=== PATIENT | male | born 1960 | race Caucasian/White ===

== ENCOUNTER 2024-05-16 12:21 | Emergency (ER) | payer MEDICARE ==
[2024-05-16] MEDS: SODIUM CHLORIDE 0.9% 1,000 ML IV STA (13:11)
[2024-05-16 13:19] LABS: Basophils % (A) 0 %; Eosinophils # (A) 0.1 k/uL (0-0.7); Eosinophils % (A) 1 %; HCT 36.3 % (39.0-53.0); HGB 11.4 gm/dL (13.0-17.5); Hypochromasia Moderate; Lymphocytes # (A) 1.6 k/uL (1.0-4.8); Lymphocytes % (A) 12 %; MCH 28.1 pg (25.0-35.0); MCHC 31.4 g/dL (31.0-37.0); MCV 89.3 fL (80.0-100.0); Monocytes # (A) 0.9 k/uL (0-1.0); Monocytes % (A) 6 %; Neutrophils # (A) 11.1 k/uL (1.3-7.7); Neutrophils % (A) 80 %; Platelet Count 463 k/uL (150-450); RBC 4.06 m/uL (4.30-5.90); RDW 14.3 % (11.5-15.5); WBC 13.8 k/uL (3.8-10.6)
[2024-05-16 13:41] LABS: ALT 13 U/L (4-49); AST 19 U/L (17-59); African American GFR (CKD) >90 (>60 ml/min/1.73 sqM); Albumin 4.3 g/dL (3.5-5.0); Alkaline Phosphatase 55 U/L (38-126); Anion Gap 7 mmol/L; Blood Urea Nitrogen 15 mg/dL (9-20); Calcium 9.1 mg/dL (8.4-10.2); Carbon Dioxide 24 mmol/L (22-30); Chloride 108 mmol/L (98-107); Glucose 103 mg/dL (74-99); Lipase 50 U/L (23-300); Non-African American GFR(CKD) >90 (>60 ml/min/1.73 sqM); Sodium 139 mmol/L (137-145); Total Bilirubin 0.4 mg/dL (0.2-1.3); Total Protein 7.2 g/dL (6.3-8.2)
--- NOTE | 2024-05-16 13:59 | CT ---
EXAMINATION TYPE: CT abdomen pelvis wo con CT DLP: 461.3 mGycm, Automated exposure control for dose reduction was used. DATE OF EXAM: 05/16/2024 1:42 PM COMPARISON: None CLINICAL INDICATION:Male, 63 years old with history of Hematuria, pelvic pain; Hematuria, pelvic pain TECHNIQUE: Standard CT of the abdomen and pelvis without IV or oral contrast. Lack of IV or oral co ntrast limits evaluation of solid and hollow organ viscera. Coronal and sagittal reformats were perfo rmed. FINDINGS: LOWER CHEST: Unremarkable ABDOMEN LIVER: Couple of subcentimeter hypodense foci within the liver which are too small to characterize bu t likely represent cysts. Hepatomegaly measuring 19.0 cm in CC dimension. GALLBLADDER AND BILE DUCTS: Contracted gallbladder. No biliary duct dilatation. PANCREAS: Unremarkable noncontrast appearance. SPLEEN: Unremarkable noncontrast appearance. ADRENAL GLANDS: Unremarkable noncontrast appearance.. KIDNEYS AND URETERS: No evidence of hydronephrosis or renal calculus. No definitive ureteral calculus . PELVIS BLADDER: Regions of wall thickening measuring up to 7 mm on the left lateral wall and on the right me asuring up to 8 mm. Perivesicular fat stranding. REPRODUCTIVE: Prostate is enlarged in size measuring 5.0 cm in transverse dimension. ABDOMEN & PELVIS STOMACH AND BOWEL: Stomach and duodenum are unremarkable. No focal bowel wall thickening or surroundi ng inflammatory changes. No evidence of bowel obstruction. PERITONEUM: No evidence of pneumoperitoneum or free fluid. VASCULATURE: Moderate atherosclerotic calcifications are present throughout the abdominal aorta and i ts branches. No evidence of aortic aneurysm. Ectasia of the infrarenal abdominal aorta measuring up t o 2.7 cm. MUSCULOSKELETAL: No acute osseous abnormalities. Grade 1 anterolisthesis of L5 on S1 with bilateral p ars defects. LYMPH NODES: No gross evidence for lymphadenopathy. SOFT TISSUE/ABDOMINAL WALL: Tiny fat filled umbilical hernia. IMPRESSION: 1. Focal regions of urinary bladder wall thickening with perivesicular fat stranding concerning for cystitis versus chronic outlet obstruction from prostatomegaly. Underlying neoplasm is not excluded. Correlate with urinalysis. 2. No evidence for obstructive uropathy or renal/ureteral calculus. 3. Ectasia of the abdominal aorta measured 2.7 cm. 4. Grade 1 anterolisthesis of L5 on S1 with bilateral pars defects. 5. Mild hepatomegaly. [facility], , 05/16/2024 1:57 PM
--- NOTE | 2024-05-16 14:07 | ED ---
General Adult HPI - General Chief complaint: Urogenital Stated complaint: Blood in Urine Time Seen by Provider: 05/16/24 12:31 Source: patient, RN notes reviewed Mode of arrival: ambulatory Limitations: no limitations - History of Present Illness Initial comments: 63-year-old male presents emergency department with chief complaint of hematuria. Patient states he started having hematuria last 24 hours. Patient states that he felt a large amount of pressure in his lower abdomen and bladder region states that he did have a large output of blood in urine. Patient states that he has known enlarged prostate in which she does take medication for when h e has symptoms. Patient denies any flank pain no chest pain no shortness of breath no night sweats no weight loss. Patient states he has not had his prostate checked recently. He does complain of pain within his pelvic region - Related Data Home Medications Medication Instructions Recorded Confirmed ALPRAZolam [Xanax] 0.5 mg PO BID 11/02/13 11/08/13 HYDROcodone/APAP 7.5-325MG [[place] 1 tab PO Q6HR 11/02/13 11/08/13 7.5-325] Lisinopril-Hctz 20-25 mg 20 mg PO DAILY 11/02/13 11/08/13 [Zestoretic 20-25] Metoprolol Succinate [Toprol XL] 50 mg PO DAILY 11/02/13 11/08/13 Terazosin [Hytrin] 5 mg PO HS 11/02/13 11/08/13 amLODIPine [Norvasc] 10 mg PO DAILY 11/02/13 11/08/13 Previous Rx's Medication Instructions Recorded Ciprofloxacin HCl [Cipro] 500 mg PO Q12HR #20 tablet 05/16/24 Allergies Allergy/AdvReac Type Severity Reaction Status Date / Time No Known Allergies Allergy Verified 05/16/24 12:29 Review of Systems ROS Statement: Those systems with pertinent positive or pertinent negative responses have been documented in the HPI. ROS Other: All systems not noted in ROS Statement are negative. Past Medical History Past Medical History: Hypertension History of Any Multi-Drug Resistant Organisms: None Reported Additional Past Surgical History / Comment(s): Broken back due to injury 2 years ago but problems started 2 weeks later with pain. Lower back radiating down bilateral legs, burning and stabbing intermittently. 5/6 pain scale. Surgery on Left arm tendon reconsruction done 1993 Past Anesthesia/Blood Transfusion Reactions: No Reported Reaction Past Psychological History: Anxiety Past Alcohol Use History: None Reported - Past Family History Father Family Medical History: Cancer Mother Family Medical History: Cancer General Exam Limitations: no limitations General appearance: alert, in no apparent distress Head exam: Present: atraumatic, normocephalic, normal inspection ENT exam: Present: normal exam, mucous membranes moist Neck exam: Present: normal inspection, full ROM. Absent: tenderness, meningismus, lymphadenopathy Respiratory exam: Present: normal lung sounds bilaterally. Absent: respiratory distress, wheezes, rales, rhonchi, stridor Cardiovascular Exam: Present: regular rate, normal rhythm, normal heart sounds. Absent: systolic murmur, diastolic murmur, rubs, gallop, clicks GI/Abdominal exam: Present: soft, tenderness (Suprapubic), normal bowel sounds. Absent: distended, guarding, rebound, rigid Course Vital Signs 05/16/24 05/16/24 12:24 14:20 Temperature 98 F 98.1 F Pulse Rate 101 H 78 Respiratory 16 18 Rate Blood Pressure 163/79 124/76 O2 Sat by Pulse 100 98 Oximetry Medical Decision Making - Medical Decision Making Was pt. sent in by a medical professional or institution (, PA, BRAZING MACHINE FEEDER, urgent care, hospital, or longterm...) When possible be specific @ -No Did you speak to anyone other than the patient for history (EMS, parent, family, police, friend...)? What history was obtained from this source @ -No Did you review nursing and triage notes (agree or disagree)? Why? @ -I reviewed and agree with nursing and triage notes Were old charts reviewed (outside hosp., previous admission, EMS record, old EKG, old radiological studies, urgent care reports/EKG's, longterm records)? Report findings @ -No old charts were reviewed Differential Diagnosis (chest pain, altered mental status, abdominal pain women, abdominal pain men, vaginal bleeding, weakness, fever, dyspnea, syncope, headache, dizziness, GI bleed, back pain, seizure, CVA, palpatations, mental health, musculoskeletal)? @ -Hematuria, kidney stone, UTI, bladder mass, kidney mass EKG interpreted by me (3pts min.). @ -None X-rays interpreted by me (1pt min.). @ -None done CT interpreted by me (1pt min.). @ -CT abdomen pelvis showing degenerative changes lumbar spine, dilated aorta, inflammatory changes bladder consistent with cystitis, chronic obstructive process or underlying neoplasm U/S interpreted by me (1pt. min.). @ -None done What testing was considered but not performed or refused? (CT, X-rays, U/S, labs)? Why? @ -None What meds were considered but not given or refused? Why? @ -None Did you discuss the management of the patient with other professionals (professionals i.e. DrEmma, PA, BRAZING MACHINE FEEDER, lab, RT, psych nurse, director social, river and lakes boatman, teacher, surface to air weapons officer, director case management)? Give summary @ -No Was smoking cessation discussed for >3mins.? @ -No Was critical care preformed (if so, how long)? @ -No Were there social determinants of health that impacted care today? How? (Homelessness, low income, unemployed, alcoholism, drug addiction, transportation, low edu. Level, literacy, decrease access to med. care, correction, rehab)? @ -No Was there de-escalation of care discussed even if they declined (Discuss DNR or withdrawal of care, Hospice)? DNR status @ -No What co-morbidities impacted this encounter? (DM, HTN, Smoking, COPD, CAD, Cancer, CVA, ARF, Chemo, Hep., AIDS, mental health diagnosis, sleep apnea, morbid obesity)? @ -None Was patient admitted / discharged? Hospital course, mention meds given and route, prescriptions, significant lab abnormalities, going to OR and other pertinent info. @ -Discharge patient updated on laboratory results, urinalysis. Patient does have evidence of UTI patient was given Rocephin CT results were provided in which patient states he knows about his aortic changes he is updated on his bladder wall concerns for neoplasm requiring him to follow-up with urology and have a cystoscopy. Patient be treated for UTI at this time return parameters are discussed. Undiagnosed new problem with uncertain prognosis? @ -No Drug Therapy requiring intensive monitoring for toxicity (Heparin, Nitro, Insulin, Cardizem)? @ -No Were any procedures done? @ -No Diagnosis/symptom? @ -UTI, hematuria Acute, or Chronic, or Acute on Chronic? @ -Acute Uncomplicated (without systemic symptoms) or Complicated (systemic symptoms)? @ -Uncomplicated Side effects of treatment? @ -No Exacerbation, Progression, or Severe Exacerbation? @ -No Poses a threat to life or bodily function? How? (Chest pain, [place], [place], pneumonia, PE, COPD, DKA, ARF, appy, cholecystitis, CVA, Diverticulitis, Homicidal, Suicidal, threat to staff... and all critical care pts) @ -No - Lab Data Result diagrams: 05/16/24 13:03 05/16/24 13:03 Lab Results 05/16/24 05/16/24 05/16/24 Range/Units 13:03 13:03 13:03 WBC 13.8 H (3.8-10.6) k/uL RBC 4.06 L (4.30-5.90) m/uL Hgb 11.4 L (13.0-17.5) gm/dL Hct 36.3 L (39.0-53.0) % MCV 89.3 (80.0-100.0) fL MCH 28.1 (25.0-35.0) pg MCHC 31.4 (31.0-37.0) g/dL RDW 14.3 (11.5-15.5) % Plt Count 463 H (150-450) k/uL MPV 7.0 Neutrophils % 80 % Lymphocytes % 12 % Monocytes % 6 % Eosinophils % 1 % Basophils % 0 % Neutrophils # 11.1 H (1.3-7.7) k/uL Lymphocytes # 1.6 (1.0-4.8) k/uL Monocytes # 0.9 (0-1.0) k/uL Eosinophils # 0.1 (0-0.7) k/uL Basophils # 0.0 (0-0.2) k/uL Hypochromasia Moderate Sodium 139 (137-145) mmol/L Potassium 4.0 (3.5-5.1) mmol/L Chloride 108 H (98-107) mmol/L Carbon Dioxide 24 (22-30) mmol/L Anion Gap 7 mmol/L BUN 15 (9-20) mg/dL Creatinine 0.54 L (0.66-1.25) mg/dL Est GFR (CKD-EPI)AfAm >90 (>60 ml/min/1.73 sqM) Est GFR (CKD-EPI)NonAf >90 (>60 ml/min/1.73 sqM) Glucose 103 H (74-99) mg/dL Calcium 9.1 (8.4-10.2) mg/dL Total Bilirubin 0.4 (0.2-1.3) mg/dL AST 19 (17-59) U/L ALT 13 (4-49) U/L Alkaline Phosphatase 55 (38-126) U/L Total Protein 7.2 (6.3-8.2) g/dL Albumin 4.3 (3.5-5.0) g/dL Lipase 50 (23-300) U/L Urine Color Red Urine Appearance Cloudy (Clear) Urine pH 6.5 (5.0-8.0) Ur Specific [place] 1.019 (1.001-1.035) Urine Protein 2+ H (Negative) Urine Glucose (UA) Negative (Negative) Urine Ketones Negative (Negative) Urine Blood Large H (Negative) Urine Nitrite Negative (Negative) Urine Bilirubin Negative (Negative) Urine Urobilinogen <2.0 (<2.0) mg/dL Ur Leukocyte Esterase Moderate H (Negative) Urine RBC >182 H (0-5) /hpf Urine WBC >182 H (0-5) /hpf Urine Mucus Rare H (None) /hpf Disposition Clinical Impression: UTI (urinary tract infection), Hematuria Disposition: HOME SELF-CARE Instructions (If sedation given, give patient instructions): Urinary Tract Infection in Men (ED) Additional Instructions: Please return to the Emergency Department if symptoms worsen or any other concerns. Prescriptions: Ciprofloxacin HCl [Cipro] 500 mg PO Q12HR #20 tablet Is patient prescribed a controlled substance at d/c from ED?: No Referrals: Kait Costello DO [Primary Care Provider] - 1-2 days Melo Cooper MD [STAFF PHYSICIAN] - 1-2 days Time of Disposition: 14:47
[2024-05-16 14:22] VITALS: BP 124/76; PULSE 78; RESP 18; TEMP 98.1
[2024-05-16 14:34] LABS: Appearance,Urine Cloudy (Clear); Bilirubin,Urine Negative (Negative); Blood,Urine Large (Negative); Color,Urine Red; Glucose,Urine (UA) Negative (Negative); Ketones,Urine Negative (Negative); Leukocyte Esterase,Urine Moderate (Negative); Mucus,Urine Rare /hpf; Nitrite,Urine Negative (Negative); PH, Urine 6.5 (5.0-8.0); Protein,Urine 2+ (Negative); RBC,Urine >182 /hpf (0-5); Specific Gravity,Urine 1.019 (1.001-1.035); Urobilinogen,Urine <2.0 mg/dL (<2.0); WBC,Urine >182 /hpf (0-5)
[2024-05-16] MEDS: cefTRIAXone IN SWFI 1,000 MG/10 ML SYRINGE IVP STA (14:54)
== END 2024-05-16 15:03 | disposition home or self-care (01) ==
LOC: EC 12:21
DX: N39.0 Urinary tract infection, site not specified (principal); R31.9 Hematuria, unspecified; M47.896 Other spondylosis, lumbar region
CPT/HCPCS: 36415; 80053; 83690; 85025; 81001; 87086; 74176; 99284; 96374; 96361 ×2; J0696

== ENCOUNTER → 2024-05-31 | Outpatient (CLI) | payer MEDICARE ==
[2024-05-31 14:55] LABS: Basophils # (A) 0.07 X 10*3/uL (0.00-0.10); Basophils % (A) 0.5 %; Eosinophils % (A) 0.7 %; HCT 34.7 % (39.6-50.0); HGB 10.5 g/dL (13.0-17.0); Lymphocytes # (A) 1.76 X 10*3/uL (0.90-5.00); Lymphocytes % (A) 11.7 %; MCH 27.1 pg (27.0-32.0); MCHC 30.3 g/dL (32.0-37.0); MCV 89.4 FL (80.0-97.0); Mean Platelet Volume 9.4 FL (9.5-12.2); Monocytes # (A) 1.15 X 10*3/uL (0.20-1.00); Monocytes % (A) 7.6 %; NRBC Per 100 WBC 0 X 10*3/uL (0.00-0.01); Neutrophils # (A) 11.84 X 10*3/uL (1.80-7.70); Neutrophils % (A) 78.6 %; Platelet Count 301 X 10*3/uL (140-440); RBC 3.88 X 10*6/uL (4.40-5.60); RDW 14.7 % (11.5-14.5); WBC 15.05 X 10*3/uL (4.50-10.00)
[2024-05-31 15:12] LABS: Blood Urea Nitrogen 18.6 mg/dL (9.0-27.0); Calcium 9.2 mg/dL (8.7-10.3); Carbon Dioxide 26.9 mmol/L (21.6-31.8); Chloride 102 mmol/L (96-109); Glucose 132 mg/dL (70-110); Potassium 4.8 mmol/L (3.5-5.5); Sodium 139 mmol/L (135-145)
[2024-05-31 16:10] LABS: Bacteria,Urine 2+ (None Seen)
[2024-05-31 16:51] LABS: Appearance,Urine Cloudy (Clear); Bilirubin,Urine Negative (Negative); Blood,Urine Large (Negative); Color,Urine Dark Yellow (Yellow); Ketones,Urine Trace (Negative); Nitrite,Urine Negative (Negative); PH, Urine 6.5; Specific Gravity,Urine 1.033 (1.001-1.030)
== END | disposition home or self-care (01) ==
LOC: LABPAT 11:20
PROVIDERS: ATTEND Urology
DX: Z01.812 Encounter for preprocedural laboratory examination (principal); D49.4 Neoplasm of unspecified behavior of bladder
CPT/HCPCS: 80048; 81001; 85025; 87086

== ENCOUNTER 2024-06-07 11:19 | Day surgery (SDC) | payer MEDICARE ==
--- NOTE | 2024-06-07 07:38 | P.HPIHPCON ---
History of Present Illness H&P Date: 06/07/24 Chief Complaint: Bladder mass, gross hematuria This is a 63-year-old male with history of gross hematuria, underwent a CT abdomen and pelvis that showed no upper tract pathology, but did show a suspicious bladder mass. Underwent cystoscopy which confirmed the finding. Discussed with him given this finding I do recommend proceeding with a transurethral resection of bladder tumor, aware of the risk which includes but not limited to bleeding, infection, bladder perforation. He understood all the risk and agreed to proceed Consent for Procedure: I have explained the operation/procedure to the patient, including the risks, benefits, side effects, alternative therapies (including not receiving the proposed treatment or service), the likelihood of the patient achieving his/her goals, and potential recuperation problems for the procedure/sedation/analgesia, as well as any blood products, if indicated. I also explained to the patient the risks, benefits and side effects of the alternatives, as well as the risks related to not receiving the proposed procedure, care, treatment, or services. Past Medical History Past Medical History: Hypertension Additional Past Medical History / Comment(s): bladder tumor, History of Any Multi-Drug Resistant Organisms: None Reported Past Surgical History: Orthopedic Surgery Additional Past Surgical History / Comment(s): Broken back due to injury 2 years ago but problems started 2 weeks later with pain. Lower back radiating down bilateral legs, burning and stabbing intermittently. 5/6 pain scale. Surgery on Left arm tendon reconsruction done 1993, Past Anesthesia/Blood Transfusion Reactions: No Reported Reaction Additional Past Anesthesia/Blood Transfusion Reaction / Comment(s): no blood tx hx Smoking Status: Current every day smoker - Past Family History Father Family Medical History: Cancer Mother Family Medical History: Cancer Medications and Allergies Home Medications Medication Instructions Recorded Confirmed Type ALPRAZolam [Xanax] 0.5 mg PO TID 11/02/13 06/03/24 History Lisinopril-Hctz 20-25 mg 20 mg PO DAILY 11/02/13 06/03/24 History [Zestoretic 20-25] Metoprolol Succinate [Toprol XL] 50 mg PO DAILY 11/02/13 06/03/24 History Terazosin [Hytrin] 5 mg PO HS 11/02/13 06/03/24 History amLODIPine [Norvasc] 10 mg PO DAILY 11/02/13 06/03/24 History traMADol HCl [Ultram] 100 mg PO BID 06/03/24 06/03/24 History Allergies Allergy/AdvReac Type Severity Reaction Status Date / Time No Known Allergies Allergy Verified 06/03/24 09:59 Surgical - Exam - General no distress, no pain - Eyes normal ocular movement, no pale - ENT normal nares, normal mucosa - Respiratory normal expansion, normal respiratory effort - Abdomen Abdomen: soft, non tender Assessment and Plan Assessment: OR for TURBT
[~2024-06-07 11:19] MED LIST: MIDAZOLAM 2 MG/2 ML VIAL IV PRN
[2024-06-07] MEDS: IV FLUID CONTINUATION 1,000 ML IV ONE ×3 (11:59→15:49)
[2024-06-07] MEDS: LACTATED RINGERS 1,000 ML IV SCH (12:01)
[2024-06-07] MEDS: DEXAMETHASONE SOD PHOSPHATE 4 MG/ML 1 ML VIAL IV ONE (12:02)
[2024-06-07] MEDS: ONDANSETRON 4 MG/2 ML VIAL IVP ONE (12:02)
[2024-06-07] MEDS ORDERED: LIDOCAINE 1% INJ 10MG/ML (20 ML MDV) ONE (13:41)
[2024-06-07] MEDS ORDERED: PROPOFOL 10 MG/ML 20 ML VIAL IV ONE (13:41)
[2024-06-07] MEDS ORDERED: fentaNYL (PF) 50 MCG/ML 2 ML AMP ONE (13:41)
[2024-06-07] MEDS ORDERED: MIDAZOLAM 2 MG/2 ML VIAL ONE (13:41)
[2024-06-07] MEDS ORDERED: ROCURONIUM 10 MG/ML (5 ML VIAL) IV ONE (13:41)
[2024-06-07] MEDS ORDERED: HYDROmorphone (PF) 1 MG/ML ONE (13:41)
[2024-06-07] MEDS ORDERED: KETAMINE HCL IN 0.9 % NACL 50 MG/5 ML SYRINGE ONE (13:41)
[2024-06-07] MEDS ORDERED: ONDANSETRON 4 MG/2 ML VIAL IVP PRN (15:42)
--- NOTE | 2024-06-07 15:58 | P.OP ---
Date of Procedure: 06/07/24 Preoperative Diagnosis: Bladder mass Postoperative Diagnosis: Bladder mass, prostate mass Procedure(s) Performed: TURBT(large), Partial TURP, Clot Evacuation Implants: none Anesthesia: CLARENCEA Surgeon: Melo Cooper Estimated Blood Loss (ml): 150 Pathology: other (Bladder, prostate tumor) Condition: stable Disposition: PACU Indications for Procedure: This is a 63-year-old male with history of gross hematuria, underwent a CT abdomen and pelvis that showed no upper tract pathology, but did show a suspicious bladder mass. Underwent cystoscopy which confirmed the finding. Discussed with him given this finding I do recommend proceeding with a transur ethral resection of bladder tumor, aware of the risk which includes but not limited to bleeding, infection, bladder perforation. He understood all the risk and agreed to proceed Operative Findings: Extensive papillary tumor involving the entire bladder neck circumferentially, extending into the trigone, also evidence of extension into the prostate base, along the prostatic apex and into the external Sphincter there was edematous tissue that was not resected Description of Procedure: Patient brought to the operating room, General anesthesia was induced. He was prepped and draped in sterile fashion and placed in a dorsolithotomy position. Resectoscope fitted with 25 Swiss sheath was inserted per urethra, cystoscopy was performed showed an extensive papillary tumor along the bladder neck the trigone and extending into the prostate base, there was also evidence of edematous tissue into the prostate apex in the extending into the level of the external sphincter. There was also significant clot burden within the bladder, using the Ellick evacuator clots were irrigated out. At this time attention was carried to the tumor, using the bipolar resectoscope the tumor along the bladder and the prostate was completely resected, of note the tumor was quite hypervascular, and the ureteral orifice ease could not be visualized during rese ction given the extension to the trigone, but caution was used not to perform cautery at that level to avoid injury to the ureteral orifice ease. There was no additional tumors within the bladder, but of note visualization was slightly limited secondary to prostatic backbleeding. Tumor along the apex and the external sphincter was not resected given the risk of incontinence. We will await on the pathology results prior to proceeding any further, additionally this are was not clearly consistent with a tumor at this time. At this point attempt to achieve hemostasis with the loop was difficult at this point I switched to a bipolar button and the entire area of resection along the prostate and the bladder neck was fulgurated using the button. At this time a 22 Swiss hematuria 3-way catheter was placed and this was irrigated to clear. Patient was started on CBI. Of all tumor specimen was irrigated out, there was no evidence of bleeding at the conclusion of the case, or evidence of bladder perforation. The patient will be kept overnight on CBI, we will await the pathology results. Patient was awakened from anesthesia and taken to recovery in stable condition
[2024-06-07] MEDS: HYDROmorphone 0.5 MG/0.5 ML SYRINGE IVP PRN ×2 (16:00→19:24)
[2024-06-07] MEDS: SCOPOLAMINE 1 MG/72 HR PATCH TRANSDERM ONE (17:28)
[2024-06-07] MEDS: D5-0.45% NACL WITH KCL 20MEQ/L 1,000 ML IV SCH (18:03)
[2024-06-07] MEDS: SODIUM CHLORIDE 0.9% IRRIGATIO 3,000 ML IRRIGATION ONE (18:04)
[2024-06-07] MEDS: DOXAZOSIN 4 MG TAB PO SCH (20:24)
[2024-06-07] MEDS: traMADol 50 MG TAB PO SCH (20:25)
[2024-06-07] MEDS: ALPRAZolam 0.5 MG TAB PO SCH (21:59)
[2024-06-08] MEDS: SODIUM CHLORIDE 0.9% IRRIGATIO 3,000 ML IRRIGATION ONE (06:47)
[2024-06-08] MEDS: METOPROLOL SUCCINATE (ER) 50 MG TAB.ER.24H PO SCH (08:50)
[2024-06-08] MEDS: amLODIPine 10 MG TAB PO SCH (08:50)
[2024-06-08] MEDS: LISINOPRIL-HCTZ 20-25 MG 1 EACH TAB PO SCH (08:50)
[2024-06-08 08:51] VITALS: BP 149/80; PULSE 96; RESP 17; TEMP 98.2
--- NOTE | 2024-06-08 18:58 | P.DS ---
Providers Attending physician: Melo Cooper MD Primary care physician: Kait Trang [facility] Course: This is a 63-year-old male with history of bladder mass. Underwent a TURBT., Partial TURP on June 07. Intraoperatively it was noted that tumor has extended into the prostate. Please see op note dated June 07 for surgery details. Patient had some prostatic backbleeding thus was started on CBI and was admitted to the hospital. Patient urine was clear on postop day #1 and the CBI was turned off. He was discharged home with a Anderson catheter on postop day #1. At time of discharge he was tolerating a diet, ambulating, pain was controlled Plan - Discharge Summary Discharge Rx Participant: Yes New Discharge Prescriptions: New Cephalexin [Keflex] 500 mg PO Q8HR #15 cap Ketorolac [Toradol] 10 mg PO Q6HR PRN #15 tab PRN Reason: Pain No Action ALPRAZolam [Xanax] 0.5 mg PO TID Lisinopril-Hctz 20-25 mg [Zestoretic 20-25] 1 tab PO DAILY amLODIPine [Norvasc] 10 mg PO DAILY Metoprolol Succinate [Toprol XL] 50 mg PO DAILY Terazosin [Hytrin] 5 mg PO HS traMADol HCl [Ultram] 100 mg PO BID Discharge Medication List ALPRAZolam [Xanax] 0.5 mg PO TID 11/02/13 [History] Lisinopril-Hctz 20-25 mg [Zestoretic 20-25] 1 tab PO DAILY 11/02/13 [History] Metoprolol Succinate [Toprol XL] 50 mg PO DAILY 11/02/13 [History] Terazosin [Hytrin] 5 mg PO HS 11/02/13 [History] amLODIPine [Norvasc] 10 mg PO DAILY 11/02/13 [History] traMADol HCl [Ultram] 100 mg PO BID 06/03/24 [History] Cephalexin [Keflex] 500 mg PO Q8HR #15 cap 06/07/24 [Rx] Ketorolac [Toradol] 10 mg PO Q6HR PRN #15 tab 06/07/24 [Rx] Follow up Appointment(s)/Referral(s): Melo Cooper MD [STAFF PHYSICIAN] - 06/15/24 11:20 am Discharge Disposition: HOME SELF-CARE
== END 2024-06-08 13:48 | disposition home or self-care (01) ==
LOC: OR 11:19 → 4SSUR 15:38 → OR 06-08 13:48
PROVIDERS: ATTEND Urology
DX: C67.8 Malignant neoplasm of overlapping sites of bladder (principal); I10 Essential (primary) hypertension; F17.200 Nicotine dependence, unspecified, uncomplicated; Z79.899 Other long term (current) drug therapy
CPT/HCPCS: 52240; 88307; J2250; J1100; J0690; J2405; J2003; J3010; J1171 ×3; J2704

== ENCOUNTER → 2024-06-30 | Outpatient (CLI) | payer MEDICARE ==
--- NOTE | 2024-07-02 15:19 | PE ---
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 Images are reviewed on the computer in the coronal, a xial, and sagittal planes. Reconstructed rotating images are created on independent workstation and reviewed on the computer. A non-contrast CT is performed in conjunction with the PET scan. Glucose l evel 126 mg/dL CT DLP: 548 mGycm, Automated exposure control for dose reduction was used. COMPARISON: CT 05/16/2024, PET/CT None, MRI: None FINDINGS: Mediastinal SUV mean is 1.8. Hepatic parenchyma SUV mean is 2.5. SKULL BASE AND NECK: Left neck uptake max SUV 7.1 thought to be within the muscle no enlarged lymph nodes are identified. CHEST, MEDIASTINUM, AND HILAR REGION: No suspicious radiotracer activity. ABDOMEN AND PELVIS: Right external iliac lymph node max SUV 4.6 measuring 6 mm in short axis MUSCULOSKELETAL STRUCTURES: No suspicious radiotracer activity. OTHER CT: Atherosclerosis of the arterial vasculature. Fusiform infrarenal abdominal aortic aneurysm measuring up to 31 mm. IMPRESSION: 1. Heterogenous appearance of the urinary bladder escalante with circumferential fat stranding which cou ld be compatible with cystitis and/or malignancy. Evaluation for metabolic activity limited due to ex creted radiotracer within the bladder lumen and ureters. There is mild bilateral hydroureter. There i s at least least one right external iliac lymph node with mild uptake which could represent metastati c disease. No other metastatic disease definitively visualized 2. Left neck uptake max SUV 7.1 thought to be within the muscle no enlarged lymph nodes are identifi ed. Attention on follow up imaging. 3. Fusiform infrarenal abdominal aortic aneurysm measuring up to 31 mm. [facility], , 07/02/2024 3:17 PM
== END | disposition home or self-care (01) ==
LOC: RADPETMAIN 08:34
PROVIDERS: ATTEND Urology
DX: C67.9 Malignant neoplasm of bladder, unspecified (principal); I71.43 Infrarenal abdominal aortic aneurysm, without rupture
CPT/HCPCS: 78815; A9552